=== PATIENT | female | born 1980 ===

== ENCOUNTER 2018-06-02 16:28 | Emergency (ER) | payer SELFPAY ==
[2018-06-02 17:28] VITALS: BMI 29.9
[2018-06-02 17:31] VITALS: RESP 20
--- NOTE | 2018-06-02 18:33 | C.PDOC ---
History Of Present Illness 37 year old female presents to the ED for evaluation of flu-like symptoms which began yesterday. Patient reports subjective fever, chills, back and chest pain associated with cough, headache, nausea and generalized body aches. She took Tylenol yesterday and this morning, without relief and presents to the ED because her symptoms have worsened. She denies vomiting, diarrhea. HPI: Influenza Time Seen by Provider: 06/02/18 17:59 Chief Complaint: Flu-like Symptoms History Per: Patient Exam Limitations: no limitations Symptoms include: fever Past Medical History Reviewed: Historical Data, Nursing Documentation, Vital Signs Vital Signs: Last Vital Signs Temp 99.9 F H 06/02/18 17:28 Pulse 100 H 06/02/18 17:28 Resp 20 06/02/18 17:28 BP 130/88 06/02/18 17:28 Pulse Ox 100 06/02/18 17:28 - Medical History PMH: No Chronic Diseases Surgical History: No Surg Hx Family History: States: Unknown Family Hx - Social History Hx Alcohol Use: No Hx Substance Use: No - Immunization History Hx Influenza Vaccination: No Review Of Systems Constitutional: Positive for: Fever, Chills Cardiovascular: Positive for: Chest Pain Gastrointestinal: Positive for: Nausea Musculoskeletal: Positive for: Back Pain, Other (body aches ) Physical Exam - Physical Exam Appears: Non-toxic, No Acute Distress Skin: Normal Color, Warm, Dry Head: Atraumatic, Normacephalic Eye(s): bilateral: Other (conjunctival injection ) Ear(s): Bilateral: Normal Nose: Normal, No Discharge Oral Mucosa: Moist Throat: Erythema, No Exudate Neck: Supple Chest: Symmetrical, No Deformity, No Tenderness Cardiovascular: Rhythm Regular, No Murmur Respiratory: Normal Breath Sounds, No Rales, No Rhonchi, No Wheezing Gastrointestinal/Abdominal: Soft, No Tenderness, No Guarding, No Rebound Extremity: Normal ROM, Capillary Refill (less than 2 seconds ) Neurological/Psych: Oriented x3, Normal Speech, Normal Cognition Medical Decision Making Medical Decision Making: Motrin PO, Tamiflu PO, and Tylenol PO given. On assessment, patient is resting comfortably, showing no signs of distress, and is stable for discharge. Patient is advised to follow up with her PMD within 1 to 2 days for further evaluation. - ECG O2 Sat by Pulse Oximetry: 100 Disposition Counseled Patient/Family Regarding: Diagnosis, Need For Followup, Rx Given - Disposition Referrals: [facility] [Outside] Disposition: HOME/ ROUTINE Disposition Time: 18:32 Condition: STABLE Prescriptions: Ibuprofen [Motrin] 600 mg PO TID #15 tab Oseltamivir Cap [Tamiflu] 1 cap PO BID #10 cap Instructions: Flu, Adult (DC) Forms: [facility] (Greek), General Discharge Instructions - POA Present On Arrival: None - Clinical Impression Clinical Impression: Influenza-like illness - Scribe Statement The provider has reviewed the documentation as recorded by the Scribe (Nanci Martinez) Provider Attestation: All medical record entries made by the Scribe were at my direction and personally dictated by me. I have reviewed the chart and agree that the record accurately reflects my personal performance of the history, physical exam, medical decision making, and the department course for this patient. I have also personally directed, reviewed, and agree with the discharge instructions and disposition.
[2018-06-02 18:50] VITALS: BP 137/82; PULSE 95; TEMP 101.6
[2018-06-02 18:55] VITALS: O2SAT 100
== END 2018-06-02 18:49 | disposition home or self-care (01) ==
LOC: C.ER 16:28
DX: J11.1 Influenza due to unidentified influenza virus with other respiratory manifestations (principal)